=== PATIENT | female | born 1975 | race Caucasian/White ===

== ENCOUNTER 2022-10-25 08:09 | Emergency (ER) | payer OTHER ==
[2022-10-25] MEDS ORDERED: HYDROcodone/Acetaminophen 5/325 mg Tablet ONE (10:28)
== END 2022-10-25 10:27 | disposition home or self-care (01) ==
LOC: CSHERS 08:09
DX: M16.11 Unilateral primary osteoarthritis, right hip (principal); J44.9 Chronic obstructive pulmonary disease, unspecified; F17.210 Nicotine dependence, cigarettes, uncomplicated

== ENCOUNTER 2022-11-05 08:21 | Outpatient (CLI) | payer OTHER | END 2022-11-05 08:22 | disposition home or self-care (01) | LOC: CSHMRI 08:21 | PROVIDERS: ATTEND Nurse Practitioner Family | DX: M54.16 Radiculopathy, lumbar region (principal); M48.061 Spinal stenosis, lumbar region without neurogenic claudication | CPT/HCPCS: 72148 ==

== ENCOUNTER 2022-11-05 09:10 | Observation (INO) | payer OTHER, MEDICAID ==
[2022-11-05 09:43] LABS: #Eosinphils 0.2 10x3/uL (0.0-0.5); #Monocytes 0.5 10x3/uL (0.0-1.1); #Neutrophils 4.7 10x3/uL (1.5-8.4); %Basophils 0.5 % (0.0-2.0); %Eosinophils 2.4 % (0.0-6.0); %Lymphocytes 18.8 % (18.0-47.0); %Monocytes 7.5 % (0.0-10.0); Hemoglobin 6.2 g/dL (12.0-15.5); Mean Corpuscular HGB CONC 25.3 g/dL (32.0-36.0); Mean Corpuscular Hemoglobin 16.3 pg (27.0-33.0); Mean Corpuscular Volume 64.5 fl (81.6-98.3); Mean Platelet Volume 10.4 fl (7.4-10.4); Platelet Count 229 10x3/uL (150-450); RBC Distribution Width 20.6 % (11.5-14.5); White Blood Cell (WBC) Count 6.7 10x3/uL (3.5-10.5)
[2022-11-05] MEDS ORDERED: Pantoprazole 40 MG VIAL ONE (09:44)
[2022-11-05 09:54] LABS: PTT 26.2 sec (22.0-33.0); Prothrombin Time 10.6 sec (9.5-12.1)
[2022-11-05 09:58] LABS: ALT (SGPT) 17 U/L (8-55); AST (SGOT) 22 U/L (5-34); Albumin 3.8 g/dL (3.5-5.0); Alkaline Phosphatase 102 U/L (40-110); Anion Gap 13 mmol/L (10-20); BUN (Urea Nitrogen) 9 mg/dL (7.0-18.7); Bilirubin, Total 0.6 mg/dL (0.2-1.2); Calc. Creatinine Clearance 0 mL/min (70-130); Calcium 8.8 mg/dL (7.8-10.44); Carbon Dioxide 27 mmol/L (22-29); Chloride 102 mmol/L (98-107); Estimated GFR 110; Globulin 2.9 g/dL (2.4-3.5); Glucose 85 mg/dL (70-105); Potassium 3.6 mmol/L (3.5-5.1); Protein, Total 6.7 g/dL (6.0-8.3); Sodium 138 mmol/L (136-145)
[2022-11-05] MEDS ORDERED: Acetaminophen 325 MG TAB PO PRN (10:50)
[2022-11-05] MEDS ORDERED: Ondansetron PF 4 MG/2 ML Vial IVP PRN (10:50)
[2022-11-05] MEDS ORDERED: diphenhydrAMINE 50 MG/ML VIAL ONE (11:52)
[2022-11-05] MEDS ORDERED: Famotidine/PF 20 mg/2ml Vial ONE (11:53)
[2022-11-05 12:52] LABS: Iron 14 ug/dL (50-170); Iron Binding Capacity, Total 351 mcg/dL (265-497)
[2022-11-05 13:00] LABS: Troponin I Less than 0.010 ng/mL (< 0.028)
[2022-11-05 13:08] LABS: Ferritin 3.57 ng/mL (10-291)
[2022-11-05 13:23] LABS: Bilirubin Neg (Negative); Blood, Urine Negative (Negative); Clarity Clear (Clear); Glucose, Urine (Dipstick) Normal (Negative); Ketone, Urine Negative (Negative); Leukocyte Negative (Negative); Nitrite Negative (Negative); Protein, Urine (Dipstick) Negative (Neg-Trace); Specific Gravity, Urine 1.005 (1.005-1.030); Urobilinogen Normal mg/dL (Less than 2)
[2022-11-05 15:39] VITALS: BMI 22.7
[2022-11-05 15:50] LABS: Troponin I Less than 0.010 ng/mL (< 0.028)
[2022-11-05] MEDS: Pantoprazole 40 MG VIAL IVP SCH (20:45)
[2022-11-06 04:26] LABS: Anion Gap 11 mmol/L (10-20); BUN (Urea Nitrogen) 9 mg/dL (7.0-18.7); Calc. Creatinine Clearance 142 mL/min (70-130); Carbon Dioxide 24 mmol/L (22-29); Chloride 108 mmol/L (98-107); Estimated GFR 113; Glucose 82 mg/dL (70-105); Potassium 3.8 mmol/L (3.5-5.1); Sodium 139 mmol/L (136-145)
[2022-11-06 04:36] LABS: #Eosinphils 0.3 10x3/uL (0.0-0.5); #Monocytes 0.5 10x3/uL (0.0-1.1); #Neutrophils 6.6 10x3/uL (1.5-8.4); %Basophils 0.3 % (0.0-2.0); %Eosinophils 3.2 % (0.0-6.0); %Lymphocytes 13.5 % (18.0-47.0); %Monocytes 5.8 % (0.0-10.0); %Neutrophils 76.3 % (40.0-75.0); Hemoglobin 6.4 g/dL (12.0-15.5); Mean Corpuscular HGB CONC 26.2 g/dL (32.0-36.0); Mean Corpuscular Hemoglobin 17.6 pg (27.0-33.0); Mean Platelet Volume 10.3 fl (7.4-10.4); Platelet Count 207 10x3/uL (150-450); RBC Distribution Width 21.4 % (11.5-14.5); Red Blood Cell (RBC) Count 3.64 10x6/uL (3.90-5.03); White Blood Cell (WBC) Count 8.7 10x3/uL (3.5-10.5)
[2022-11-06] MEDS ORDERED: Iron Sucrose Complex 200 MG in Sodium Chloride 0.9% 100 ML IVPB SCH (08:00)
[2022-11-06] MEDS ORDERED: Iron, Sodium Ferric Gluconate 250 MG in Sodium Chloride 0.9% 250 ML 250 ML IVPB SCH (08:30)
[2022-11-06] MEDS: Pantoprazole 40 MG VIAL IVP SCH ×2 (09:00→20:07)
[2022-11-06 11:18] LABS: Hemoglobin 6.8 g/dL (12.0-15.5)
[2022-11-06] MEDS ORDERED: traMADol HCl 50 MG TAB PO PRN (13:37)
[2022-11-06] MEDS ORDERED: Acetaminophen/Codeine 30-300mg Tablet PO PRN (13:40)
[2022-11-07] MEDS: Acetaminophen/Codeine 30-300mg Tablet PO PRN ×3 (03:29→17:01)
[2022-11-07 03:45] LABS: #Eosinphils 0.3 10x3/uL (0.0-0.5); #Monocytes 0.5 10x3/uL (0.0-1.1); #Neutrophils 7.8 10x3/uL (1.5-8.4); %Basophils 0.3 % (0.0-2.0); %Eosinophils 2.8 % (0.0-6.0); %Lymphocytes 11.1 % (18.0-47.0); Hemoglobin 7.2 g/dL (12.0-15.5); Mean Corpuscular HGB CONC 26.9 g/dL (32.0-36.0); Mean Corpuscular Hemoglobin 18.2 pg (27.0-33.0); Mean Corpuscular Volume 67.7 fl (81.6-98.3); Mean Platelet Volume 10.2 fl (7.4-10.4); Platelet Count 227 10x3/uL (150-450); RBC Distribution Width 22.3 % (11.5-14.5); Red Blood Cell (RBC) Count 3.96 10x6/uL (3.90-5.03); White Blood Cell (WBC) Count 9.7 10x3/uL (3.5-10.5)
[2022-11-07 03:51] LABS: Anion Gap 13 mmol/L (10-20); BUN (Urea Nitrogen) 7 mg/dL (7.0-18.7); Calc. Creatinine Clearance 148 mL/min (70-130); Calcium 8.2 mg/dL (7.8-10.44); Carbon Dioxide 23 mmol/L (22-29); Chloride 107 mmol/L (98-107); Estimated GFR 114; Glucose 87 mg/dL (70-105); Potassium 3.6 mmol/L (3.5-5.1); Sodium 139 mmol/L (136-145)
[2022-11-07] MEDS: Pantoprazole 40 MG VIAL IVP SCH (09:37)
[2022-11-07 13:29] LABS: #Basophils 0.1 10x3/uL (0.0-0.2); #Eosinphils 0.3 10x3/uL (0.0-0.5); #Monocytes 0.5 10x3/uL (0.0-1.1); #Neutrophils 5.9 10x3/uL (1.5-8.4); %Basophils 0.7 % (0.0-2.0); %Lymphocytes 18.3 % (18.0-47.0); %Monocytes 5.8 % (0.0-10.0); %Neutrophils 69.4 % (40.0-75.0); Hemoglobin 7.7 g/dL (12.0-15.5); Mean Corpuscular HGB CONC 26.9 g/dL (32.0-36.0); Mean Corpuscular Hemoglobin 18.4 pg (27.0-33.0); Mean Corpuscular Volume 68.4 fl (81.6-98.3); Mean Platelet Volume 10.7 fl (7.4-10.4); Platelet Count 262 10x3/uL (150-450); RBC Distribution Width 22.6 % (11.5-14.5); Red Blood Cell (RBC) Count 4.18 10x6/uL (3.90-5.03); White Blood Cell (WBC) Count 8.4 10x3/uL (3.5-10.5)
[2022-11-07 14:07] LABS: Platelet Morphology Comment Appears Adequate
[2022-11-07 14:14] LABS: Anisocytosis MODERATE=16-30 cells (100X) (0-5/hpf); Hypochromia SLIGHT = 6-15 cells (100X) (0-5/hpf); Macrocytosis SLIGHT = 6-15 cells (100X) (0-5/hpf); Microcytosis SLIGHT = 6-15 cells (100X) (0-5/hpf)
[2022-11-07 14:15] LABS: Elliptocytes SLIGHT = 2-5 cells (100X) (0-1/hpf); Stomatocytes SLIGHT = 2-5 cells (100X) (0-1/hpf)
[2022-11-07 17:08] VITALS: BP 99/68; TEMP 98.4
== END 2022-11-07 18:00 | disposition home or self-care (01) ==
LOC: CSHERS 09:10 → CSHTELE 13:05
PROVIDERS: ADMIT Internal Medicine; ATTEND Family Medicine
DX: D64.9 Anemia, unspecified (principal); R94.31 Abnormal electrocardiogram [ECG] [EKG]; G89.4 Chronic pain syndrome; J44.9 Chronic obstructive pulmonary disease, unspecified; M19.90 Unspecified osteoarthritis, unspecified site; F17.210 Nicotine dependence, cigarettes, uncomplicated; Z79.899 Other long term (current) drug therapy
CPT/HCPCS: 36430 ×2; 71045; 72148; 80048 ×2; 80053; 81003; 82607; 82728; 83540; 83550; 84484 ×2; 85018; 85025 ×4; 85610; 85730; 86850 ×2; 86900; 86901; 86920; 93005; 94760 ×3; 96374; 96375 ×2; 96376 ×3; 99285; G0378 ×4; P9016 ×2; 36415; C9113; J1200; J2916; J7050; S0028